=== PATIENT | male | born 1995 | race Caucasian/White ===

== ENCOUNTER → 2016-11-24 | Outpatient (CLI) | payer OTHER ==
--- NOTE | ~2016-11-24 | NDGEN ---
PATIENT'S NAME: VJ SOLIMAN [facility] AGE: 21 Y [address] ROOM: [place] [address] LOCATION: [facility] ADMIT DATE: 11/24/2016 Neurodiagnostics DISCHARGE DATE: FAMILY PHYSICIAN: Ramone Mcginnis MD ATTENDING PHYSICIAN: DAVID PAUL PROCEDURE: ELECTROENCEPHALOGRAM DATE OF PROCEDURE: 11/24/2016 INDICATION: This is a 21-year-old male who has a known seizure disorder with generalized seizures as well as recent myoclonic jerking. DESCRIPTION: This EEG was a 21-lead EEG, which was done with the patient initially awake and then sleepy and then falling asleep. The patient received photic stimulation when awake as well as hyperventilation. The general background rhythm revealed a normal 9 hertz alpha rhythm with amplitudes between 30 to 50 microvolts during the patient's sleep. The background rhythm slowed to around 7 to 8 hertz; with eyes open there was slowing of the background rhythm and with eyes closed, the alpha rhythm appropriately increased to a normal 9-10 hertz. This background rhythm appeared to be normal and sinusoidal throughout the recording. Hyperventilation and photic stimulation did not reveal any change in the background rhythm. At no time was there any epileptiform features seen. No myoclonic jerking was noted. IMPRESSION: This is a normal EEG. MD HEAVEN FOOTE/jez /[id number] dtt: 12/28/16 1522 , LAURIE BELLA dtd: 11/24/16 1632
== END | disposition disaster alternative care site (69) ==
LOC: GNEU 09:35
DX: R53.83 Other fatigue (principal)